=== PATIENT | female | born 1985 | race Caucasian/White ===

== ENCOUNTER 2018-09-02 11:10 | Emergency (ER) | payer MEDICAID ==
[2018-09-02 11:12] VITALS: BMI 52.2
[2018-09-02 11:14] VITALS: RESP 18; O2SAT 99
--- NOTE | 2018-09-02 11:54 | ED PDOC ---
HPI: Back Time Seen by Provider: 09/02/18 11:15 Chief Complaint (Nursing): Back Pain Chief Complaint (Provider): Lower Back Pain History Per: Patient History/Exam Limitations: no limitations Onset/Duration Of Symptoms: Days Current Symptoms Are (Timing): Still Present Quality Of Discomfort: Aching Severity: Mild Pain Scale Rating Of: 6 Previous Symptoms: Back Pain Associated Symptoms: None Exacerbating Factor(s): Turning, Movement, Standing Additional History Per: Patient Additional Complaint(s): 33 yr old female with past medical history of Afib on ASA, Obesity and sciatica. Pt c/o Right lower back pain since started while at work. 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 Pt reports she has had bilat lower back pain in the past. She states pain is non-radiating and denies urinary complaints. She states pain is worse with bending, turning, sitting and attempting to get up from a sitting or laying position. Pt also denies fever, nausea, abd pain, pelvic pain, weakness or numbness of lower extremities. Pt has good bowel and bladder control. Past Medical History Vital Signs: Last Vital Signs Temp 98.2 F 09/02/18 11:12 Pulse 84 09/02/18 11:12 Resp 18 09/02/18 11:12 BP 158/90 H 09/02/18 11:12 Pulse Ox 99 09/02/18 11:12 - Medical History PMH: Atrial Fibrillation Denies: HIV, Chronic Kidney Disease - Surgical History Surgical History: No Surg Hx - Family History Family History: States: Unknown Family Hx, Diabetes - Social History Alcohol: None Drugs: Denies - Home Medications Home Medications: Ambulatory Orders Medication Instructions Recorded Aspirin [Aspirin Chewable] 81 mg PO DAILY #0 chew 12/11/15 Verapamil [Calan Tab] 80 mg PO DAILY 12/11/15 Ibuprofen [Motrin] 600 mg PO Q8H PRN #30 tab 09/02/18 Lidocaine 5% [Lidoderm] 1 ea TD Q12H PRN #10 patch 09/02/18 - Allergies Allergies/Adverse Reactions: Allergies Allergy/AdvReac Type Severity Reaction Status Date / Time No Known Allergies Allergy Verified 03/15/14 07:33 Review of Systems Constitutional: Negative for: Fever, Chills, Sweats, Weakness, Malaise Eyes: Negative for: Pain Cardiovascular: Negative for: Chest Pain, Palpitations Respiratory: Negative for: Cough, Shortness of Breath, SOB with Exertion, Wheezing Gastrointestinal: Negative for: Nausea, Vomiting, Abdominal Pain, Diarrhea, Constipation Genitourinary Female: Negative for: Dysuria Musculoskeletal: Positive for: Back Pain (right lower back pain) Skin: Negative for: Rash Neurological: Negative for: Weakness Physical Exam - Reviewed Nursing Documentation Reviewed: Yes Vital Signs Reviewed: Yes - Physical Exam Appears: Positive for: Well, Non-toxic, No Acute Distress Head Exam: Positive for: ATRAUMATIC, NORMAL INSPECTION, NORMOCEPHALIC Skin: Positive for: Normal Color, Warm, Dry Eye Exam: Positive for: EOMI, Normal appearance, PERRL ENT: Positive for: Normal ENT Inspection Neck: Positive for: Normal, Painless ROM Cardiovascular/Chest: Positive for: Regular Rate, Rhythm Respiratory: Positive for: CNT, Normal Breath Sounds Pulses-Dorsalis Pedis (L): 2+ Pulses-Dorsalis Pedis (R): 2+ Pulses-Radial (L): 2+ Pulses-Radial (R): 2+ Gastrointestinal/Abdominal: Positive for: Normal Exam, Bowel Sounds, Soft. Negative for: Tenderness, Mass Back: Positive for: Normal Inspection. Negative for: L CVA Tenderness, R CVA Tenderness Extremity: Positive for: Normal ROM, Capillary Refill (<2sec cap refill. ), Other (neg for spinal point tenderness, lower extremities are warm to touch, color wnl ). Negative for: Tenderness, Calf Tenderness, Deformity, Swelling Neurological/Psych: Positive for: Awake, Alert, Normal Tone, Symmetric/Intact Strength, Oriented - Laboratory Results Urine POC: Negative Urine dip results: Positive for: Blood (TRACE-INTACT). Negative for: Leukocyte Esterase, Nitrate, Ketones, Glucose, Bilirubin, Protein - ECG O2 Sat by Pulse Oximetry: 99 - Progress ED Course And Treament: Toradol 30mg IM No muscle relaxants given as patient verbalizes she was advised to have caution taking muscle relaxers due to afib. Pt educated on non-pharmacological therapies that can help alleviate pain. 1200: No further workout in the ED needed. Clinical findings discussed with Pt. Pt is in agreeable with D/C plan. Pt given return to ED precautions. Rx; given for lidoderm patch, educated on use. Rx for motrin as needed. Disposition - Clinical Impression Clinical Impression: Low back pain - Patient ED Disposition Is Patient to be Admitted: No Counseled Patient/Family Regarding: Diagnosis, Rx Given - Disposition Disposition: Routine/Home Disposition Time: 12:00 Condition: GOOD Prescriptions: Ibuprofen [Motrin] 600 mg PO Q8H PRN #30 tab PRN Reason: Pain, Moderate (4-7) Lidocaine 5% [Lidoderm] 1 ea TD Q12H PRN #10 patch PRN Reason: Pain, Moderate (4-7) Instructions: Low Back Pain in Adults Forms: [facility] ED School/Work Excuse Print Language: SAMI - POA Present On Arrival: None
[2018-09-02 11:59] LABS: SQUAMOUS EPITHIAL 3 /hpf (0-5); URINE BILIRUBIN NEGATIVE (NEGATIVE); URINE BLOOD NEGATIVE (NEGATIVE); URINE CLARITY CLOUDY (Clear); URINE COLOR YELLOW (YELLOW); URINE GLUCOSE (UA) NEG (NEGATIVE); URINE LEUKOCYTE ESTERASE NEG Leu/uL (Negative); URINE PROTEIN NEGATIVE (NEGATIVE); URINE UROBILINOGEN 0.2-1.0 mg/dL (0.2-1.0)
[2018-09-02 12:49] VITALS: BP 154/78; PULSE 88; TEMP 98.4
== END 2018-09-02 12:48 | disposition home or self-care (01) ==
LOC: H.ER 11:10
DX: M54.5 Low back pain (principal)
CPT/HCPCS: 81003; 81025; 96372; 99283; J1885